=== PATIENT | female | born 2000 ===

== ENCOUNTER → 2023-07-10 | Outpatient (CLI) | payer SELFPAY ==
[2023-07-11 11:35] LABS: Candida species (DNA Probe) Negative (NEGATIVE); G. vaginalis (DNA Probe) Negative (NEGATIVE); T. vaginalis (DNA Probe) Negative (NEGATIVE)
== END | disposition home or self-care (01) ==
LOC: LAB 13:22 → LAB SHORT 13:22
PROVIDERS: Physician Assistant
DX: N76.0 Acute vaginitis (principal)
CPT/HCPCS: 87480; 87510; 87660

== ENCOUNTER → 2024-01-14 | Outpatient (CLI) | payer BC | END | disposition home or self-care (01) | LOC: LAB 10:10 → LAB SHORT 10:10 | PROVIDERS: Advanced Practice Midwife | DX: Z01.419 Encounter for gynecological examination (general) (routine) without abnormal findings (principal) | CPT/HCPCS: G0123 ==